=== PATIENT | female | born 1950 ===

== ENCOUNTER 2025-09-08 12:14 | Day surgery (SDC) | payer OTHER ==
[~2025-09-08] VITALS: Ht 160 cm; Wt 75.7 kg
[2025-09-08] MEDS ORDERED: ALPRAZOLAM110 (12:43)
[2025-09-08] MEDS ORDERED: METOPROLOL SUCC25 MG (12:43)
[2025-09-08] MEDS ORDERED: ATORVALIQ20 MG/5 ML (12:43)
[2025-09-08] MEDS ORDERED: Ondansetron HCl 2 MG / ML 2ML Vial ONE (15:03)
--- NOTE | 2025-09-08 15:05 | NUR ---
09/08/25 1505 Catrachita Mejía 16ML NORMAL SALINE USED TO ELEVATE POLYP
[2025-09-08] MEDS ORDERED: Ipratropium/Albuterol SulF 2.5-0.5MG/3 ML Amp ONE (15:39)
--- NOTE | 2025-09-08 16:03 | NUR ---
09/08/25 1603 Herb Robertson LUNG SOUNDS CLEAR BILATERALLY, PT COUGHING AND STATED SHE 'FEELS CONGESTED" POST OP IN SDU, SPO2 97%. NEB TX GIVEN IN SDU PER MD VERBAL ORDERS. PT COUGHING LESS AND STATED 'FEELS LESS CONGESTED" POST BREATHING TREATMENT. PT C/O 05/20 PAIN IN THROAT. PT STATED WILL TAKE THROAT LOZENGES AFTER DISCHARGE. RN ENCOURAGED WARM BEVERAGES WITH HONEY WELL.
== END 2025-09-08 16:03 | disposition home or self-care (01) ==
LOC: ORSCSDS 12:14
PROVIDERS: Internal Medicine Gastroenterology
PROC: 0DBK8ZX Excision of Ascending Colon, Via Natural or Artificial Opening Endoscopic, Diagnostic (ICD-10-PCS; principal; 2025-09-08 13:15)
DX: R19.4 Change in bowel habit (principal); R19.5 Other fecal abnormalities; D12.2 Benign neoplasm of ascending colon; K57.30 Diverticulosis of large intestine without perforation or abscess without bleeding; K64.8 Other hemorrhoids; Z83.719 Family history of colon polyps, unspecified; R10.9 Unspecified abdominal pain; Z79.899 Other long term (current) drug therapy
CPT/HCPCS: 88305; J2405; J2704; J7120